=== PATIENT | male | born 1970 | race Caucasian/White ===

== ENCOUNTER 2016-10-16 12:33 | Observation (INO) | payer OTHER, MEDICARE ==
[~2016-10-16] VITALS: Ht 188 cm; Wt 111.9 kg
[~2016-10-16 12:33] MED LIST: KEFLEX-DPS500 MG PO; LORTAB 10-3251 EACH PO
--- NOTE | 2016-10-20 17:48 | HP ---
ADMIT: 10/16/2016 RM/LOC: 409 [facility] MR#: [id number] [address] [address] [place] [address] History and Physical SEX: M AGE: 46 : 1970 DATE OF SERVICE: CHIEF COMPLAINT: Difficulty walking, falls, leg weakness/balance issues. HISTORY OF PRESENT ILLNESS: The patient is a very pleasant, 46-year-old gentleman. 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 The patient notes that his legs just gave out today at work, did notice some sharp pain behind his left leg and behind his left knee. This was accompanied by transient blurry vision without diplopia and headache, kind of frontal, mild in nature. It started about 11 a.m., just went home from work with and then developed some left arm numbness and tingling as well as right arm tremor. The patient notes especially that leg weakness and balance issues are worsened since I saw him last on the 02 of October. At that time, his main complaints were leg weakness that has been going on almost a year with slow worsening. He had undergone an MRI to look for any signs of myelopathy of the lumbar spine, was overall normal except for some mild spinal stenosis. There was question with leg weakness that there was some myopathic component. He underwent really a normal workup at that time with normal CK aldolase and thyroid. Normal sedimentation rate and CRP. At that point, his neurologic exam was normal except for some weakness of hip flexors that was thought to be about 4/5 but as mentioned above since that time, leg weakness has been worse, but had to go home from work frequently and grabs on to things frequently in his environment, to keep himself from falling. Now, the patient notes that his vision changes are almost completely resolved as well as left arm and left hand numbness. He does note a little bit of left lateral neck discomfort with no radiation. He denies any fevers, chills, or weight loss. Denies any abdominal pain, nausea, vomiting, chest pain, shortness of breath. No new medication problems are noted. He is admitted for further evaluation and treatment. PAST MEDICAL HISTORY: 1. History of benign essential tremor. 2. History of AVN of the bilateral hips. 3. Spinal stenosis with some low back pain, MRI in September of 2016. 4. He does have a prior history of substance abuse. 5. He has allergies to OxyContin, bees, and iodinated-contrast agents. 6. He has history of left testicular torsion. 7. He is status post cholecystectomy, status post appendectomy, status post bilateral hip replacements, and status post removal of spermatocele. FAMILY HISTORY: Father with tremor as well. Father also with heart disease. Mother with diabetes and hyperlipidemia. He also has 2 brothers with tremor. SOCIAL HISTORY: He is an occasional drinker. No IV or illicit drugs, and does smoke. CURRENT MEDICATIONS: Include: ADMIT: 10/16/2016 RM/LOC: 409 [facility] MR#: [id number] [address] [place] [id number] [place] [address] History and Physical SEX: M AGE: 46 : 1970 1. Multivitamin. 2. Primidone. REVIEW OF SYSTEMS: As noted above. All systems reviewed and negative. PHYSICAL EXAMINATION: VITAL SIGNS: Per [facility]. He is currently afebrile. GENERAL: This is an elderly, obese gentleman, appears his stated age. He is in no apparent distress. He is awake. He is oriented x3, cooperative with the examiner. HEENT: Normocephalic and atraumatic. Mucous membranes are moist. NECK: Supple. LUNGS: Clear to auscultation bilaterally without wheeze, rhonchi, or rales. HEART: Regular. ABDOMEN: Soft, nontender, and nondistended. Positive bowel sounds throughout. EXTREMITIES: He has no edema that is noted. He has no rashes that are noted. NEURO: His cranial nerves are intact, II through XII. I do not fruit picker any focal deficits there. He has good hand mounter strength bilaterally. His neck has good range of motion without any obvious pain. Upper extremities, he is 5/5 equal and symmetric. Lower extremities, his plantar foot dorsiflexion is 5/5. His hip flexors are 4/5 bilaterally as are his hamstring, quads, approximately 4/5 bilaterally, equal and symmetric. Reflexes, they are 2/2, equal and symmetric throughout. Babinski were not tested. ASSESSMENT AND PLAN: 1. Bilateral leg weakness, worsening. 2. Gait disturbance. 3. Headache. 4. Left arm and hand numbness, tingling, and weakness, resolved. 5. Vision changes, resolved. He has no eye pain. 6. History of essential tremor. 7. History of avascular necrosis of the bilateral hips. At this time, the patient notes he is feeling better except for really for the leg weakness ADMIT: 10/16/2016 RM/LOC: 409 [facility] MR#: [id number] [address] [place] [id number] [place] [address] History and Physical SEX: M AGE: 46 : 1970 and little bit frontal headache. He has received some Toradol, going to make sure he has something for pain, certainly with all these lesions in time and space but progressive weakness certainly are wondering about a demyelinating illness. 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 I am going to have Neurology see him and see if they have any ideas with this leg pain. We are going to check some Dopplers to make sure he does not have clot as he has been laid up for a little while here recently. With this leg weakness, we will place in a Med/Surg bed and follow him closely. PT and OT as well. Spencer Doll MD/ lopez JOB #: [id number] CC: Spencer Doll, Attending Physician Spencer Doll, Family Physician
[2016-10-20] MEDS ORDERED: MYSOLINE50 MG PO (20:56)
[2016-10-20] MEDS ORDERED: THERA1 EACH PO (20:56)
--- NOTE | 2016-10-27 16:21 | DS ---
ADMIT: 10/16/2016 RM/LOC: 409 [facility] MR#: [id number] [address] [address] [place] [address] Discharge Summary SEX: M AGE: 46 : 1970 ADMISSION DATE: 10/16/2016 DISCHARGE DATE: 10/20/2016 DISCHARGE DIAGNOSES: 1. Progressive proximal muscle weakness with normal qualitative but abnormal quantitative lower extremity EMG (electromyelography). 2. Gait disturbance. 3. Neck pain with cervical radiculopathy resolving. 4. Cervical disc disease. 5. Blurry vision resolved. 6. Tension headache resolved. 7. Benign familial tremor. CONSULTATIONS: Flako Watts MD, with Physical Medicine and Rehabilitation. PROCEDURES: Both qualitative and quantitative nerve conduction/EMGs of the lower extremities. REASON FOR ADMISSION: A very pleasant, 46-year-old gentleman, who presents to [facility] emergency room with falls and gait disturbance. He had progressive proximal muscle weakness and was admitted for further evaluation and treatment. For complete details, please see my H and P dictated on the day of admission. HOSPITAL COURSE: At the time of admission, the patient was placed in a med/surg bed. He had no meningeal signs, and by the time I saw him, his left upper extremity paresthesias, radicular symptoms had pretty much resolved but did have significant amount of weakness especially of his quadriceps, hamstrings, but also hip flexors and hip extensors. With all of his symptoms, there was some of his previous myopathy workup had been obtained and was normal with normal CKs and aldolase. However, that was repeated as well as a vasculitis workup. There was some concern for demyelinating process, and he underwent imaging of the MRI of the head, the C-spine and the T-spine. He previously had undergone a CT of the lumbar spine that was overall normal. Those studies were overall noted to be normal except for a cervical disc likely causing his left upper extremity radicular symptoms. It was with all of this, that I consulted Physical Medicine/Rehabilitation. We did not have Neurology inpatient available at that time. At the time of this admission, he underwent qualitative studies that showed no evidence of any lumbosacral radiculopathy, no evidence of peripheral polyneuropathy, no evidence of inflammatory demyelinating polyneuropathy. No evidence of a myelopathic process on qualitative EMG. However, if concern remains, we did do quantitative EMGs that were done by Dr. Watts on October 19 and the quantitative EMG was limited a little bit by hospital electrical interference and the patient's inability to adequately the examine and muscle weakness, but there was evidence suggestive of a myopathic process especially in the left gluteus tamela and possible muscle biopsy was asked to be considered. The patient was seen by PT and OT. He did really well with a walker and gait belt and was getting around well as home safety was our biggest issue with a ADMIT: 10/16/2016 RM/LOC: 409 [facility] MR#: [id number] [address] [place] [id number] [place] [address] Discharge Summary SEX: M AGE: 46 : 1970 couple of falls he had at home and work. At this point, a lot of his lab work was still pending. The patient was discharged home to have arrangements made for outpatient neurology evaluation prior to any possible muscle biopsy. DISCHARGE MEDICATIONS: On his discharge medication sheet. DISCHARGE ACTIVITY: As tolerated but always using the walker with assistance. Diet will be as tolerated. We will set him up for a neurology evaluation hopefully at [facility] here in the next week or 10 days. Spencer Doll MD/ vickey JOB #: [id number] CC: Spencer Doll MD, Attending Physician Spencer Doll MD, Family Physician
--- NOTE | 2016-11-11 21:25 | ER ---
ADMIT: 10/16/2016 RM/LOC: 409 [facility] MR#: [id number] [address] [address] [place] [address] Emergency Room Report SEX: M AGE: 46 : 1970 DATE: 10/16/2016 HISTORY OF PRESENT ILLNESS: A 46-year-old male comes to the Emergency Department with complaints of increasing weakness. No headache. Apparently, he has been worked up extensively by his primary care physician for the same complaints. He is due to see his primary care physician today; however, his felt this could not wait for the appointment that was later in this afternoon. He takes no medicines other than this perplexing weakness in his lower extremities and now saying it is in his upper extremities. He has no medical history. PHYSICAL EXAMINATION: GENERAL: A 46-year-old gentleman in no acute distress with no focal findings. NEUROLOGIC: There is some subjective weakness 4+/5 in the right upper extremity as compared to 5/5 in the left upper extremity same with the lower extremities more proximal than distal. CARDIOVASCULAR: Regular rate and rhythm. LUNGS: Clear to auscultation. DIAGNOSTIC DATA: CT scan of the head is negative. CBC and CMP are normal. Sedimentation rate is pending at time of this dictation. The patient is being admitted because the is fearful that if he falls at home she is unable to pick him up. DIAGNOSIS: Neuropathy. Moises Thomas MD/ lopez JOB #: [id number] CC: Spencer Doll MD, Attending Physician Spencer Doll MD, Family Physician
== END 2016-10-20 13:42 | disposition home or self-care (01) ==
LOC: ER 12:33 → 4PCU 15:00
PROVIDERS: ADMIT Internal Medicine
DX: M62.81 Muscle weakness (generalized) (principal); R26.9 Unspecified abnormalities of gait and mobility; M54.12 Radiculopathy, cervical region; H53.8 Other visual disturbances; G44.209 Tension-type headache, unspecified, not intractable; G62.9 Polyneuropathy, unspecified; G25.0 Essential tremor; M79.604 Pain in right leg; M79.605 Pain in left leg; Z96.643 Presence of artificial hip joint, bilateral; Z90.49 Acquired absence of other specified parts of digestive tract; Z88.0 Allergy status to penicillin; Z79.899 Other long term (current) drug therapy; Z91.041 Radiographic dye allergy status; Z88.6 Allergy status to analgesic agent